=== PATIENT | female | born 2000 | race Caucasian/White ===

== ENCOUNTER 2020-01-17 22:34 | Emergency (ER) | payer OTHER, SELFPAY ==
--- NOTE | ~2020-01-17 | XR_ITS ---
EXAMINATION: XR chest 1V portable INDICATION: Shortness of breath TECHNIQUE: Portable AP chest at 2252 hours COMPARISON: None available FINDINGS: There are minimal airspace opacities of the right lung base. There is no pleural effusion o r pneumothorax. The cardiomediastinal silhouette is normal. The visualized bones and soft tissues are unremarkable. IMPRESSION: 1. Right basilar airspace opacity, consistent with atelectasis versus pneumonia. Reviewed, dictated and finalized at location A. [employer] IMPRESSION: 1. Right basilar airspace opacity, consistent with atelectasis versus pneumonia .
[2020-01-17 22:32] VITALS: BP 132/89; PULSE 131; RESP 28; TEMP 36.9; O2SAT 100
--- NOTE | 2020-01-17 22:39 | WPDEDEXPGENP ---
HPI - General Ped General Chief complaint: Shortness of Breath/Dyspnea Stated complaint: COVID+ DIFFICULTY BREATHING Time Seen by Provider: 01/17/20 22:39 History of Present Illness HPI narrative: 19 yo female w/ h/o COVID-19, asthma presents to the ED for SOB. She reports that her symptoms first started 6 days ago. She has primarily had a cough and congestion. Today she was coughing more and she developed sharp pain in the chest with coughing and breathing. Per EMS RA sat was 85 % with rapid improvement on supplemental oxygen. On arrival here RA saturation is 100%. Related Data Allergies Allergy/AdvReac Type Severity Reaction Status Date / Time Sulfa (Sulfonamide Allergy Hives Verified 01/17/20 22:43 Antibiotics) Pediatric Review of Systems : All systems ED: reviewed and negative except as stated Constitutional: Denies fever ENT: Denies sore throat Cardiovascular: Reports chest pain Respiratory: Reports cough and dyspnea Gastrointestinal: Denies abdominal pain, nausea and vomiting Genitourinary: Denies dysuria Musculoskeletal: Denies back pain PMFSH Past Medical History Medical History (Updated 01/18/20 @ 00:07 by Ramesh Ricks MD) Asthma Social History Social History (Updated 01/17/20 @ 22:45 by Ramesh Ricks MD) Smoking status: Never smoker Gender identity (if verbalized by the patient): Female Pediatric Exam General: General appearance: well-hydrated and well-nourished Eye: Eye exam: Present normal appearance ENT: ENT exam: normal exam Neck: Neck exam: Present normal inspection Chest: Chest inspection: Present normal inspection Respiratory: Respiratory exam: Present normal lung sounds bilaterally; Absent respiratory distress Cardiovascular: Cardiovascular exam: Present normal rhythm and tachycardia Abdominal Exam: Abdominal exam: Present soft; Absent tenderness Extremities Exam: Extremities exam: Present normal inspection Skin: Skin exam: Present warm, dry and normal color Course Vital Signs Vital signs: Vital Signs Temperature 36.9 C 01/17/20 22:32 Pulse Rate 131 H 01/17/20 22:32 Respiratory Rate 28 H 01/17/20 22:32 Blood Pressure 132/89 01/17/20 22:32 Pulse Oximetry 100 01/17/20 22:32 Temperature 36.8 C 01/18/20 00:31 Pulse Rate 108 H 01/18/20 00:31 Respiratory Rate 18 01/18/20 00:31 Blood Pressure 124/69 01/18/20 00:31 Pulse Oximetry 100 01/18/20 00:31 Medical Decision Making MDM Narrative Medical decision making narrative: Oxygen saturation 100% entire time here. Feeling better. Seems to be largely anxiety induced. Given her history of asthma I will start her on prednisone. Medical Records Medical records reviewed: Yes I reviewed the patient's medical records. Vital Signs Vital Signs: Vital Signs Temperature 36.9 C 01/17/20 22:32 Pulse Rate 131 H 01/17/20 22:32 Respiratory Rate 28 H 01/17/20 22:32 Blood Pressure 132/89 01/17/20 22:32 Pulse Oximetry 100 01/17/20 22:32 Temperature 36.8 C 01/18/20 00:31 Pulse Rate 108 H 01/18/20 00:31 Respiratory Rate 18 01/18/20 00:31 Blood Pressure 124/69 01/18/20 00:31 Pulse Oximetry 100 01/18/20 00:31 Lab Data Lab results reviewed: Yes I reviewed the patient's lab results. Result diagrams: 01/17/20 22:44 01/17/20 22:44 Labs: Lab Results 01/17/20 01/17/20 Range/Units 22:44 22:44 WBC 8.1 (4.5-10.0) K/mm3 RBC 4.35 (4.2-5.4) M/mm3 Hgb 13.6 (12.0-15.0) g/dL Hct 37.5 (37.0-47.0) % MCV 86.2 (80-100) fl MCH 31.3 (26-34) pg MCHC 36.3 H (32-36) g/dl RDW 11.4 L (11.5-14.5) % Plt Count 311 (150-375) k/mm3 MPV 9.6 (7.4-10.4) fl Immature Gran % (Auto) 0.1 (0-0.5) % Neut % (Auto) 38.4 L (45.5-73.1) % Lymph % (Auto) 52.6 H (18.3-44.2) % Rankin % (Auto) 7.6 (2.6-8.5) % Eos % (Auto) 0.9 (0-4.4) % Baso % (Auto) 0.4 (0.2-1.2) % Lymph # (Auto) 4.24 H (0.9
[2020-01-17] MEDS: SODIUM CHLORIDE 0.9% IV 1,000 ML 999 ML IV CONT (22:48)
[2020-01-17] MEDS: KETOROLAC 30 MG/ML VIAL (*BKC) IV PUSH (22:48)
[2020-01-17] MEDS: diphenhydrAMINE HCl INJ 50 MG/ML VIAL IV PUSH (22:48)
[2020-01-17 22:52] LABS: Basophils Percent Auto 0.4 % (0.2-1.2); Eosinophils Absolute Auto 0.1 K/mm3 (0-0.3); Eosinophils Percent Auto 0.9 % (0-4.4); Hematocrit 37.5 % (37.0-47.0); Hemoglobin 13.6 g/dL (12.0-15.0); Immature Granulocyte Absolute 0.01 K/mm3 (0.00-0.031); Immature Granulocyte Percent A 0.1 % (0-0.5); Lymphocytes Absolute Auto 4.24 K/mm3 (0.9-3.2); Lymphocytes Percent Auto 52.6 % (18.3-44.2); Mean Corpuscular HGB Conc 36.3 g/dl (32-36); Mean Corpuscular Hemoglobin 31.3 pg (26-34); Mean Corpuscular Volume 86.2 fl (80-100); Mean Platelet Volume 9.6 fl (7.4-10.4); Monocytes Absolute Auto 0.6 K/mm3 (0.1-0.6); Monocytes Percent Auto 7.6 % (2.6-8.5); Neutrophils Absolute Auto 3.1 K/mm3 (1.3-6.7); Neutrophils Percent Auto 38.4 % (45.5-73.1); Platelet Count Result 311 k/mm3 (150-375); Red Blood Count 4.35 M/mm3 (4.2-5.4); Red Cell Distribution Width 11.4 % (11.5-14.5); White Blood Count 8.1 K/mm3 (4.5-10.0)
[2020-01-17 23:05] LABS: Anion Gap 15 mmol/L (8-16); Blood Urea Nitrogen 9 mg/dL (7-17); Calcium 9.2 mg/dL (8.4-10.2); Carbon Dioxide 19 mmol/L (22-30); Chloride 106 mmol/L (98-107); Estimated CRCL calculation 96 ml/min; Estimated Glomerular Filt Rate > 60; Glucose 112 mg/dL (65-105); Potassium 3.4 mmol/L (3.4-5.0); Sodium 140 mmol/L (137-145)
[2020-01-17 23:24] LABS: Alveolar/Arterial O2 Gradient 21.6 mmHg; Fractional Inspired Oxygen 21 %; Oxygen Content ABG 17.9 %vol (16.0-22.0); Oxygen Saturation ABG 96.8 % (95.0-100.0); Oxyhemoglobin 95.8 % THb (90.0-100.0); PCO2 ABG 33.4 mmHg (35.0-45.0); PO2 ABG 88.1 mmHg (80.0-100.0); Total Hemoglobin 13.2 g/dL (12.0-18.0); pH ABG 7.395 (7.350-7.450)
[2020-01-17 23:25] LABS: Device ROOM AIR; Site Drawn RIGHT BRACHIAL
[2020-01-18 00:31] VITALS: BP 124/69; PULSE 108; RESP 18; TEMP 36.8; O2SAT 100
== END 2020-01-18 00:32 | disposition home or self-care (01) ==
PROVIDERS: Emergency Provider Emergency Medicine
DX: U07.1 COVID-19 (principal); J12.89 Other viral pneumonia; J45.909 Unspecified asthma, uncomplicated
CPT/HCPCS: 36415; 36600; 71045; 80048; 82805; 85025; 96361; 96374; 96375; 99284; J1100; J1200; J1885; J7030